=== PATIENT | female | born 1960 | race Caucasian/White ===

== ENCOUNTER 2022-04-01 04:19 | Emergency (ER) | payer BC ==
--- OUTSIDE RECORDS SUMMARY | 2022-04-01 04:24 | XMS REPORT | Continuity of Care Document ---
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 [facility] Gustavo Adan M.D. 2016-11-24 2016-11-24 Day nullFlavo [facility] [id number] [place] 11:35:00 15:05:00 Surgery r [place] 00 l [facility] 2016-11-24 2016-11-24 [facility] BRITTANY MELO Orthopedics [id number] [place] 07:00:00 07:00:00 t; ricky BLACKWELL [place] Gustavo Chao M.D. 2016-11-18 2016-11-18 [facility] MELO UTP [id number] [place] 09:15:00 09:15:00 t; Mickey BLACKWELL M.D. ans TAGGART, M.D. 2016-09-27 2016-09-27 [facility] ELIDIA BRITTANY UTP [id number] [place] 10:00:00 10:00:00 t; Tin TRUJILLO ANDREW, ans ANDREW, M.D. M.D. 2016-06-27 2016-06-27 [facility] ELIDIA BRITTANY SOTO [id number] [place] 09:45:00 09:45:00 t; Tin TRUJILLO ANDREW, ans ANDREW, M.D. M.D. 2016-06-08 2016-06-08 [facility] ELIDIA BRITTANY UTP [id number] [place] 10:00:00 10:00:00 t; Tin TRUJILLO ANDREW, ans ANDREW, M.D. M.D. Results Test Description Test Time Test Comments Results Result Comments Source POCT GRP A STREP (MOLECULAR) 2021-09-22 19:18:00 Test Item Value Reference Range Interpretation Comme nts POCT GP A STREP (test code = 84766-9) negative Negative - Negat jyothi [facility] [id number] 09:41:0094[facility] XTRKY7226-10-79 09:41:0015[facility]annCHE[facility] CJCBO1279-78-83 09:41:000.59[facility]annCHE[facility] RWDXM5600-43-71 09:41:72647Gvxpvryk HermannCHEM FULXH0670-84-78 09:41:003.1[facility] OBNSV1627-61-99 09:41:73511 [facility] LGJBF7983-44-01 09:41:0029[facility]annCHE[facility] PANEL 2019-08-12 09:41:008.8[facility] YJQYY0891-66-20 09:41:006.1[facility]annCHE[facility] DJSPC6130-63-48 09:41:003.2[facility]annCHE[facility] UNFKH1921-76-60 09:41:0068[facility]annCHE[facility] TXQAJ3347-90-33 09:41:0066[facility]annCHE[facility] MCIAU9773-39-96 09:41:0063[facility]annCHE[facility] IONKS9279-92-32 09:41:000.3 [facility] HermannCHEM VHLRL5090-15-60 09:41:009.1[facility]annCHEM PANEL 2019-08-12 09:41:00 Test Item Value Reference Range Interpretation Comments B/C Ratio (test code = B/C Ratio) 25 1 6-25 [facility] NEQRD9951-27-21 09:41:002.9[facility]annCHE[facility] PANEL 2019-08-12 09:41:00 Test Item Value Reference Range Interpretation Comments A/G Ratio (test code = A/G Ratio) 1.1 1 0.7-1.6 [facility] ANSONHNMDU3310-11-09 09:41:26817Rhnlsavf HermannHEMATOLOGY 2019-08-12 02:39:00 Test Item Value Reference Range Interpretation Comments PT (test code = PT) 12.2 s 12.0-14.7 [facility] TomballYnwnqjnVODBUPHIXT1266-28-90 02:39:00 Test Item Value Reference Range Interpretation Comments INR (test code = INR) 0.92 1 0.85-1.17 [facility] TomballZiwlnycBYJCWWYPEC5036-02-06 02:39:00 Test Item Value Reference Range Interpretation Comments PTT (test code = PTT) 29.2 s 22.9-35.8 [facility] TomballZygbmxoPVTLSFJCGX2507-50-55 02:39:0072.3[facility] HermannHEMATOLOGY 2019-08-12 02:39:0018.8[facility] DhfmuddDEVBPZBMPQ1681-45-11 02:39:007.3[facility] WcqujbjLQEUOFMSBG0657-91-01 02:39:001.0[facility] VsbwpzeJZZSNHFDSE7701-80-06 02:39:000.6[facility] CkxcktfBCWOCEEBXR4668-56-69 02:39:006.1[facility] Willi IEZZQWBIGY8090-76-14 02:39:001.6[facility] EaepzayYLETXYHBDV4721-48-52 02:39:000.6 [facility] YwlkobwCLRENKOPZN6109-02-99 02:39:000.1[facility] HermannCHEM PANEL 2019-08-12 02:39:0080[facility] HermannCHEM PXESW7037-74-19 02:39:0014[facility]annCHEM EVMYT0257-35-57 02:39:000.63[facility]annCHEM TQTTT1178-65-47 02:39:88342Eubmacpz HermannCHEM GRNSH1318-82-86 02:39:003.7[facility]annCHEM RHJFN0620-02-45 02:39:44534Tvczbdng HermannCHEM HJFNO0812-95-57 02:39:0027 [facility]ann[facility] LOAAY1295-45-79 02:39:009.1[facility]annCHEM PANEL 2019-08-12 02:39:007.2[facility]annCHEM RPILI9615-00-68 02:39:003.7[facility]annCHE[facility] RKTZX3685-52-15 02:39:0090[facility]annCHEM RVSQT3181-36-77 02:39:65196Ntoumnnd HermannCHEM BVRDO9758-95-73 02:39:0072[facility]annCHEM BLSNP0718-38-58 02:39:000.4[facility]annCHE[facility] SFCBI7432-87-74 02:39:0099 [facility] RZUWB3989-01-92 02:39:0011.7[facility]annCHEM PANEL 2019-08-12 02:39:00 Test Item Value Reference Range Interpretation Comments B/C Ratio (test code = B/C Ratio) 22 1 6-25 [facility]annCHE[facility] QNHTS0405-16-37 02:39:003.5[facility] HermannCHEM PANEL 2019-08-12 02:39:00 Test Item Value Reference Range Interpretation Comments A/G Ratio (test code = A/G Ratio) 1.1 1 0.7-1.6 Memorial UuvnsvsWPPIAQEKOV9188-41-85 02:39:008.5[facility] HermannHEMATOLOGY 2019-08-12 02:39:004.52[facility] WkxxdckZWWNGEBTTC5991-40-98 02:39:0014.4[facility] DiturzrZQOKUUJQEL4101-72-42 02:39:0042.3[facility] GjzcnbdUTAVQRDXJR7529-49-07 02:39:0093.4[facility] UtidsngAMLRISWOCB4870-01-05 02:39:00 Test Item Value Reference Range Interpretation Comments MCH (test code = MCH) 31.8 pg 27.0-31.0 [facility] WkmmlcrVDOBQYXSRO5843-87-20 02:39:0034.0[facility] HermannHEMATOLOGY 2019-08-12 02:39:0013.1[facility] XyxseldJHITHMCWEV2441-23-49 02:39:25150Ckolyesb WyrecuqESRWBSQKKE7003-00-10 02:39:008.5[facility] Willi- CT CHEST W/O CONTRAST 2019-05-20 10:33:00 Name: CARLOS EDUARDOMARCIAL METZGER [facility] : 1960 Age/S: 59 / F [address] Unit #: [id number] Loc: [place] [address] Phys: Petar Arias MD Acct: [id number] Dis Date: Status: REG CLI PHONE #: [phone] Exam Date: 05/20/2019 0922 FAX #: Reason: Z87.891 EXAMS: CPT: [id number] CT CHEST W/O CONTRAST 47702 EXAM : CT CHEST WITHOUT CONTRAST HISTORY: 59 years -old Female with Z87.891 LOCATION CODE: C3 COMPARISON: None TECHNIQUE: CT evaluation of thethorax performed with contiguous axial images obtained without IV contrast administration per department protocol. Mediastinal and pulmonary windows utilized with coronal reconstructions also reviewed. Study is limited without IV contrast. Automated exposure reduction (Auto mA / Smart mA) was utilized in compliance with ACR image wisely. Total Exam DLP : 129 mGy/cm CTDI vol: 0.77 mGy FINDINGS: Lines and tubes: None. Lungs and pleura: No pleural effusion. No pneumothorax. No pulmonary consolidation. No central endobronchial masses. Mediastinum and neck: No adenopathy by CT sizecriteria. The thyroid gland is normal. Cardiac: No cardiomegaly or pericardial effusion. Thoracic Aorta: The thoracic aorta is unremarkable in appearance. Elevation left hemidiaphragm is seen. Abdomen: No upper abdominal abnormality identified. Patient demonstrate presence of status post surgical trena and radiopaque mesh overlying the GE junction compatible with prior surgical intervention. Musculoskeletal: No soft tissue masses. No aggressive appearing skeletal lesions. IMPRESSION: PAGE 1 Signed Report (CONTINUED) Name: MARCIAL MALDONADO [facility] : 1960 Age/S: 59 / F [address] Unit #: [id number] Loc: [place] [address] Phys: Petar Arias MD Acct: [id number] Dis Date: Status: REG CLI PHONE #: [phone] Exam Date: 05/20/2019921 FAX #: Reason: Z87.891 EXAMS: CPT: [id number] CHEST W/O CONTRAST 59916 <Continued> 1. Status post hiatal hernia repair. 2. No infiltrate. 3. No pneumothorax or pleural effusion. 4. Elevation left hemidiaphragm. This report was generated with usage of voice recognition software. at 1033 Reported and signed by: Kennedy Reveles M.D. CC: Petar Arias MD Technologist:Azul Simons, RT(R) CTDI: DLP: Trnscb Date/Time: 05/20/2019 (1033) [email or web address] Orig Print D/T: S: 05/20/2019 (1036) PAGE 2 Signed ReportCARDIAC CFIVQOW6808-77-95 22:23:00 <0.02[facility] HermannCARDIAC MIURUCS3906-15-93 22:23:0044[facility] HermannCHEM IUAJW8555-72-15 22:23:0085[facility] HermannCHEM FWSXU5834-99-35 22:23:000.3 [facility] HermannCHEM MHVRS2295-69-34 22:23:003.9[facility] HermannCHEM PANEL 2019-02-14 22:23:007.6[facility] HermannCHEM SCDUH4273-06-21 22:23:0035[facility] HermannCHEM DBAKB7635-58-71 22:23:0023[facility] HermannCHEM YMHUN7632-20-75 22:23:51710Vrgoovyp HermannCHEM YWZCS0735-17-38 22:23:003.5[facility] HermannCHEM BLRRX0723-88-79 22:23:0027[facility] HermannCHEM RDNFG3158-23-19 22:23:15626 [facility] HermannCHEM WZNWW3229-26-25 22:23:0098[facility] HermannCHEM PANEL 2019-02-14 22:23:000.57[facility] HermannCHEM EHOJD2982-84-31 22:23:0017[facility] HermannCHEM WNDZZ7703-71-72 22:23:009.5[facility] HermannCHEM KCRRK9827-22-39 22:23:96559Uryxgiko HermannCHEM RCCCE8361-90-96 22:23:003.7[facility] HermannCHEM MRESN5350-83-91 22:23:00 Test Item Value Reference Range Interpretation Comments A/G Ratio (test code = A/G Ratio) 1.1 1 0.7-1.6 [facility] HermannCHEM HEVAA1170-61-26 22:23:0016.5[facility] HermannCHEM PANEL 2019-02-14 22:23:00 Test Item Value Reference Range Interpretation Comments B/C Ratio (test code = B/C Ratio) 30 1 6-25 [facility] ZvyupomBLQEDFCFMP0755-35-69 22:23:004.72[facility] HermannHEMATOLOGY 2019-02-14 22:23:0014.6[facility] KxsiqqyTYWBIOIPXY9607-47-23 22:23:005.7[facility] VzlbmiqYCVNMJZRBI9831-96-00 22:23:0042.8[facility] BlvqkxaSPLBSHSSBS4081-39-42 22:23:0090.5[facility] CnuzsmvGUJMVADPGT6350-96-87 22:23:0012.7[facility] [place] QGFHBCPJYN6058-71-14 22:23:70331Wqsnchvl DwxjeitWOGBLQWSBC7268-16-17 22:23:008.2 [facility] TdmhgclCJRULLYMIV0449-05-78 22:23:00 Test Item Value Reference Range Interpretation Comments MCH (test code = MCH) 30.9 pg 27.0-31.0 Memorial PlmiapvDMUGRPCCNT0240-09-00 22:23:0034.1[facility] HermannHEMATOLOGY 2019-02-14 22:23:008.7[facility] VrpvtjwWBJIIUJVHU6738-12-66 22:23:0029.6[facility] MavyicwCUTWQZAJDY7648-79-90 22:23:002.7[facility] AchlxqvPLIAQYGTQC0501-66-31 22:23:000.5[facility] FaliqhzGZCDPGVKHZ5418-86-47 22:23:001.7[facility] [place] XIRSXOLSEI5107-38-80 22:23:003.3[facility] VrlxanrHOPYOGVQPM2892-44-24 22:23:001.0 [facility] EipkohnEWQKMLPFDZ9225-07-38 22:23:000.2[facility] HermannHEMATOLOGY 2019-02-14 22:23:000.1[facility] JjoosotYFJFCHVMDH1288-40-56 22:23:0058.0[facility] NzpjxhfTLRBNKSUEALS4329-72-00 18:08:0010.0[facility] VkvkseeEPXLMGTWBPKO2730-29-80 18:08:004.0[facility] MjkgkjpGYGDYACUUDUU9598-39-68 18:08:00078Ppkattoa Willi GKAFLSHANNZW8164-80-15 18:08:0032[facility] KimzwaeSEHQWSOUBCSP6201-33-48 18:08:00 104[facility] [place]
[2022-04-01 05:22] LABS: Hematocrit 43.8 % (36.0-45.0); Lymphocytes % 11.7 % (15.3-44.8); MPV 7.7 fL (7.6-11.3); RBC Red Blood Cell Count 4.85 M/uL (3.86-4.86)
[2022-04-01 05:25] LABS: Urine Blood Negative (Negative); Urine Glucose Negative (Negative); Urine Protein Negative (Negative); Urine pH 6.5 (5.0-7.0)
[2022-04-01 05:48] LABS: Bilirubin Total 0.6 mg/dL (0.2-1.0); Potassium 3.2 mmol/L (3.5-5.1); Protein, Total 7.7 g/dL (6.4-8.2)
[2022-04-01] MEDS ORDERED: NA CHLORIDE 0.9% 1,000 ML ONE (05:50)
[2022-04-01] MEDS ORDERED: FAMOTIDINE 20 MG/2 ML VIAL IV ONE (05:50)
[2022-04-01] MEDS ORDERED: MORPHINE 4 MG/ML SYR ONE (05:50)
[2022-04-01] MEDS ORDERED: ONDANSETRON 4 MG/2 ML VIAL ONE (05:50)
[2022-04-01 06:01] LABS: Urine Bacteria 20-50 /HPF (<20); Urine Mucus 3+ /HPF (NONE SEEN); Urine RBC <5 /HPF (NONE SEEN)
--- NOTE | 2022-04-01 07:44 | ER ---
Nurse's Notes [facility] Name: Nichole Thibodeaux Age: 61 yrs Sex: Female : 1960 Arrival Date: 04/01/2022 Time: 04:24 Bed 7 Private MD: Diagnosis: Abdominal pain, Generalized Presentation: 04/01 04:48 Chief complaint: Patient states: she has been having abdominal pain so bad that she has bb not been able to sleep all night she vomited x 1 on arrival and feels better also had normal bowel movement last night. Coronavirus screen: At this time, the client does not indicate any symptoms associated with coronavirus-19. Ebola Screen: No symptoms or risks identified at this time. Initial Sepsis Screen: Does the patient meet any 2 criteria? No. Patient's initial sepsis screen is negative. Does the patient have a suspected source of infection? No. Patient's initial sepsis screen is negative. Risk Assessment: Do you want to hurt yourself or someone else? Patient reports no desire to harm self or others. Onset of symptoms was March 31, 2022. 04:48 Method Of Arrival: Ambulatory bb 04:48 Acuity: JAIRO 3 bb Triage Assessment: 05:25 General: Appears in no apparent distress. Behavior is appropriate for age. Pain: ke1 Complains of pain in abdomen Pain currently is 2 out of 10 on a pain scale. at worst was 8 out of 10 on a pain scale. level that patient reports is acceptable is 5 out of 10 on a pain scale. GI: Abdomen is non-distended, Bowel sounds present X 4 quads. Abd is soft X 4 quads Abdomen is tender to palpation X 4 quads. in umbilical area, right upper quadrant, left upper quadrant, right lower quadrant and left lower quadrant. : No deficits noted. Historical: - Allergies: 04:49 No Known Allergies; bb - Home Meds: 04:49 montelukast oral [Active]; Advair Diskus Inhl [Active]; eszopiclone oral [Active]; bb cetirizine oral [Active]; levothyroxine oral [Active]; Hydrochlorothiazide Oral [Active]; Omeprazole Oral [Active]; escitalopram oxalate oral [Active]; Aspirin Oral [Active]; calcium 1200 [Active]; magnesium oxide 500 mg Oral tab [Active]; vit D [Active]; Fish Oil oral [Active]; - PMHx: 04:49 Asthma; insomnia; seasonal allergies; Hypothyroidism; GERD; Anxiety; bb - PSHx: 04:49 hysterctomy; bb - Immunization history:: Moderna x 3. - Social history:: Smoking status: Patient denies any tobacco usage or history of. Screenin:25 Abuse screen: Denies threats or abuse. Nutritional screening: No deficits noted. ke1 Tuberculosis screening: No symptoms or risk factors identified. Fall Risk None identified. No fall in past 12 months (0 pts). No secondary diagnosis (0 pts). IV access (20 points). Ambulatory Aid- None/Bed Rest/Nurse Assist (0 pts). Gait- Normal/Bed Rest/Wheelchair (0 pts) Mental Status- Oriented to own ability (0 pts). Total Post Fall Scale indicates No Risk (0-24 pts). Assessment: 05:27 GI: Reports vomiting. ke1 07:00 Reassessment: RECD REPORT FROM MILLIE ROA. 61YO WF P/W ABDOMINAL PAIN AND N/V. S/S bp RELIEVED, CT RESULTS PENDING. 08:01 Reassessment: PT D/C HOME AMBULATORY, DX WITH GEN ABDOMINAL PAIN. bp Vital Signs: 04:48 BP 119 / 78; Pulse 82; Resp 16 S; Temp 98.1(O); Pulse Ox 93% on R/A; Weight 78.02 kg bb (R); Height 5 ft. 6 in. (167.64 cm) (R); Pain 2/10; 07:00 BP 122 / 78; Pulse 71; Resp 17; Pulse Ox 100% ; bp 08:01 BP 121 / 69; Pulse 65; Resp 16; Pulse Ox 100% ; bp 04:48 Body Mass Index 27.76 (78.02 kg, 167.64 cm) ED Course: 04:24 Patient arrived in ED. kz 04:47 Millie Blake RN is Primary Nurse. ke1 04:49 Jonathan Gutiérrez MD is Attending Physician. [facility] 04:49 Triage completed. bb 04:49 Arm band placed on Patient placed in an exam room, on a stretcher, on pulse oximetry. bb 05:24 Inserted saline lock: 22 gauge in right antecubital area, using aseptic technique. ke1 05:26 Patient has correct armband on for positive identification. Bed in low position. Call ke1 light in reach. 05:59 CT Abd/Pelvis - Without Contrast In Process Unspecified. EDMS 07:07 Primary Nurse role handed off by Millie Blake RN bp 07:07 Rocky Cornejo, RN is Primary Nurse. bp 07:40 EKG done, by ED staff. tp1 08:00 IV discontinued, intact, bleeding controlled, No redness/swelling at site. Pressure bp dressing applied. 08:01 IV discontinued, intact, bleeding controlled, No redness/swelling at site. Pressure tp1 dressing applied. 08:01 No provider procedures requiring assistance completed. bp Administered Medications: 06:00 Drug: NS 0.9% 1000 ml Route: IV; Rate: 1000 ml; Site: right antecubital; ke1 08:03 Follow up: IV Status: Completed infusion; IV Intake: 1000ml bp 06:00 Drug: morphine 4 mg Route: IVP; Infused Over: 4 mins; Site: right antecubital; ke1 07:31 Follow up: Response: Pain is decreased bp 06:00 Drug: Zofran (Ondansetron) 4 mg Route: IVP; Site: right antecubital; ke1 07:31 Follow up: Response: No adverse reaction bp 06:00 Drug: Pepcid (famotidine) 20 mg Route: IVP; Site: right antecubital; ke1 07:31 Follow up: Response: No adverse reaction bp Medication: 08:01 VIS not applicable for this client. bp Intake: 08:03 IV: 1000ml; Total: 1000ml. bp Outcome: 07:44 Discharge ordered by . [facility] 08:01 Discharged to home ambulatory. bp 08:01 Condition: stable 08:01 Discharge instructions given to patient, Instructed on discharge instructions, follow up and referral plans. medication usage, Demonstrated understanding of instructions, follow-up care, medications, Prescriptions given X 3. 08:03 Patient left the ED. bp Signatures: Dispatcher Med[employer] EDLA Mamie Santoro RN RN bb Peltier, Brian, RN RN bp Holmes, Maurice, MD MD mh7 Parker, Tiffany tp1 Millie Blake RN RN ke1 Katelynn Harris Corrections: (The following items were deleted from the chart) 04:58 04:49 Home Meds: Fish Oil 1,000 mg (120 mg-180 mg) oral cap; bb bb
--- NOTE | 2022-04-01 07:45 | EDPHYS ---
Physician Documentation [facility] Name: Nichole Thibodeaux Age: 61 yrs Sex: Female : 1960 Arrival Date: 04/01/2022 Time: 04:24 Bed 7 Private MD: ED Physician Jonathan Gutiérrez HPI: 04/01 05:05 This 61 yrs old Female presents to ER via Ambulatory with complaints of Abdominal Pain, mh7 Nausea. 05:05 The patient presents with abdominal pain that is diffuse. mh7 05:05 Onset: The symptoms/episode began/occurred today, at 02:00. The symptoms do not mh7 radiate. Associated signs and symptoms: Pertinent positives: nausea and vomiting, Pertinent negatives: anorexia, blood in stools, chest pain, constipation, diarrhea, dysuria, fever, headache, hematuria, palpitations, shortness of breath, vomiting blood. The symptoms are described as intermittent, vague, waxing/waning. Modifying factors: The symptoms are alleviated by nothing, the symptoms are aggravated by nothing. Severity of pain: At its worst the pain was moderate today, in the emergency department the pain has improved moderately. Historical: - Allergies: 04:49 No Known Allergies; bb - Home Meds: 04:49 montelukast oral [Active]; Advair Diskus Inhl [Active]; eszopiclone oral [Active]; bb cetirizine oral [Active]; levothyroxine oral [Active]; Hydrochlorothiazide Oral [Active]; Omeprazole Oral [Active]; escitalopram oxalate oral [Active]; Aspirin Oral [Active]; calcium 1200 [Active]; magnesium oxide 500 mg Oral tab [Active]; vit D [Active]; Fish Oil oral [Active]; - PMHx: 04:49 Asthma; insomnia; seasonal allergies; Hypothyroidism; GERD; Anxiety; bb - PSHx: 04:49 hysterctomy; bb - Immunization history:: Moderna x 3. - Social history:: Smoking status: Patient denies any tobacco usage or history of. ROS: 05:05 Constitutional: Negative for fever, chills, and weight loss, Eyes: Negative for injury, mh7 pain, redness, and discharge, ENT: Negative for injury, pain, and discharge, Neck: Negative for injury, pain, and swelling, Cardiovascular: Negative for chest pain, palpitations, and edema, Respiratory: Negative for shortness of breath, cough, wheezing, and pleuritic chest pain, Back: Negative for injury and pain, : Negative for injury, bleeding, discharge, and swelling, MS/Extremity: Negative for injury and deformity, Skin: Negative for injury, rash, and discoloration, Neuro: Negative for headache, weakness, numbness, tingling, and seizure, Psych: Negative for depression, anxiety, suicide ideation, homicidal ideation, and hallucinations, Allergy/Immunology: Negative for hives, rash, and allergies, Endocrine: Negative for neck swelling, polydipsia, polyuria, polyphagia, and marked weight changes, Hematologic/Lymphatic: Negative for swollen nodes, abnormal bleeding, and unusual bruising. Exam: 05:05 Head/Face: Normocephalic, atraumatic. Eyes: Pupils equal round and reactive to light, mh7 extra-ocular motions intact. Lids and lashes normal. Conjunctiva and sclera are non-icteric and not injected. Cornea within normal limits. Periorbital areas with no swelling, redness, or edema. Neck: Trachea midline, no thyromegaly or masses palpated, and no cervical lymphadenopathy. Supple, full range of motion without nuchal rigidity, or vertebral point tenderness. No Meningismus. Chest/axilla: Normal chest wall appearance and motion. Nontender with no deformity. No lesions are appreciated. Cardiovascular: Regular rate and rhythm with a normal S1 and S2. No gallops, murmurs, or rubs. Normal PMI, no JVD. No pulse deficits. Respiratory: Lungs have equal breath sounds bilaterally, clear to auscultation and percussion. No rales, rhonchi or wheezes noted. No increased work of breathing, no retractions or nasal flaring. 05:05 Back: No spinal tenderness. No costovertebral tenderness. Full range of motion. Skin: Warm, dry with normal turgor. Normal color with no rashes, no lesions, and no evidence of cellulitis. MS/ Extremity: Pulses equal, no cyanosis. Neurovascular intact. Full, normal range of motion. Neuro: Awake and alert, GCS 15, oriented to person, place, time, and situation. Cranial nerves II-XII grossly intact. Motor strength 5/5 in all extremities. Sensory grossly intact. Cerebellar exam normal. Normal gait. Psych: Awake, alert, with orientation to person, place and time. Behavior, mood, and affect are within normal limits. 05:05 Constitutional: The patient appears in no acute distress, alert, awake, uncomfortable. 05:05 Abdomen/GI: Inspection: abdomen appears normal, Bowel sounds: normal, in all quadrants, Palpation: mild abdominal tenderness, in all quadrants, Rectal exam: the exam is deferred, because of patient request, Indicators: McBurney's point is not tender, Horowitz's sign is negative, Rovsing's sign is negative, Obturator sign is negative, Psoas sign is negative, Liver: no appreciated palpable abnormalities, Hernia: not appreciated. Vital Signs: 04:48 BP 119 / 78; Pulse 82; Resp 16 S; Temp 98.1(O); Pulse Ox 93% on R/A; Weight 78.02 kg bb (R); Height 5 ft. 6 in. (167.64 cm) (R); Pain 2/10; 07:00 BP 122 / 78; Pulse 71; Resp 17; Pulse Ox 100% ; bp 08:01 BP 121 / 69; Pulse 65; Resp 16; Pulse Ox 100% ; bp 04:48 Body Mass Index 27.76 (78.02 kg, 167.64 cm) bb MDM: 07:41 Differential diagnosis: bowel obstruction, diverticulitis, gastritis, gastroesophageal mh7 reflux disease, non-specific abd pain, pancreatitis, Peptic Ulcer Disease, Pyelonephritis, Ureterolithiasis, urinary tract infection. Data reviewed: vital signs, nurses notes, lab test result(s), CBC, electrolytes, urinalysis, EKG, radiologic studies, CT scan. Data interpreted: Pulse oximetry: on room air is 100 %. Interpretation: normal. Counseling: I had a detailed discussion with the patient and/or guardian regarding: the historical points, exam findings, and any diagnostic results supporting the discharge/admit diagnosis, lab results, radiology results, the need for outpatient follow up, to return to the emergency department if symptoms worsen or persist or if there are any questions or concerns that arise at home. Response to treatment: the patient's symptoms have resolved after treatment, the patient's blood pressure is in an acceptable range, mental status has returned to baseline, the patient no longer shows bradycardia, the patient is not short of breath, the patient is not tachycardic, the patient's pain is gone, the patient's temperature has normalized, the patient is now symptom free, patient is well hydrated. ED course: Feels better, well appearing, NAD, VSS, no focal neurological deficits. Tolerating PO intake without difficulty. No abdominal pain, nausea, vomiting, diarrhea. Patient requests to be discharged at this time. Will follow up with her doctor.. 07:44 Patient medically screened. [facility] 04/01 05:02 Order name: CBC with Diff; Complete Time: 05:37 [facility] 04/01 05:02 Order name: CMP; Complete Time: 07:12 [facility] 04/01 05:02 Order name: Lipase; Complete Time: 07:12 [facility] 04/01 05:14 Order name: Urine Microscopic Only; Complete Time: 07:12 [facility] 04/01 05:25 Order name: Urine Dipstick-Ancillary; Complete Time: 05:37 [facility] 04/01 06:03 Order name: Urine Culture [facility] 04/01 05:02 Order name: IV Saline Lock; Complete Time: 05:14 [facility] 04/01 05:02 Order name: Labs collected and sent; Complete Time: 05:14 [facility] 04/01 05:38 Order name: CT Abd/Pelvis - Without Contrast [facility] 04/01 07:13 Order name: EKG; Complete Time: 07:14 [facility] 04/01 05:02 Order name: Urine Dipstick-Ancillary (obtain specimen); Complete Time: 05:24 [facility] 04/01 07:13 Order name: EKG - Nurse/Tech; Complete Time: 07:50 [facility] Administered Medications: 06:00 Drug: NS 0.9% 1000 ml Route: IV; Rate: 1000 ml; Site: right antecubital; ke1 08:03 Follow up: IV Status: Completed infusion; IV Intake: 1000ml bp 06:00 Drug: morphine 4 mg Route: IVP; Infused Over: 4 mins; Site: right antecubital; ke1 07:31 Follow up: Response: Pain is decreased bp 06:00 Drug: Zofran (Ondansetron) 4 mg Route: IVP; Site: right antecubital; ke1 07:31 Follow up: Response: No adverse reaction bp 06:00 Drug: Pepcid (famotidine) 20 mg Route: IVP; Site: right antecubital; ke1 07:31 Follow up: Response: No adverse reaction bp Disposition Summary: 04/01/22 07:44 Discharge Ordered Location: Home [facility] Problem: new [facility] Symptoms: have improved [facility] Condition: Stable [facility] Diagnosis - Abdominal pain, Generalized mh7 Followup: [facility] - With: Private Physician - When: 1 - 2 days - Reason: Worsening of condition, Recheck today's complaints, Continuance of care, Re-evaluation by your physician Discharge Instructions: - Discharge Summary Sheet [facility] - Viral Gastroenteritis, Adult, [id number] [facility] - Abdominal Pain, Adult, [id number] [facility] Forms: - Medication Reconciliation Form [facility] - Thank You Letter [facility] - Antibiotic Education [facility] - Prescription Opioid Use [facility] Prescriptions: - ondansetron 4 mg Oral tablet,disintegrating - place 1 tablet by TRANSLINGUAL route every 8 hours As needed; 10 tablet; [facility] Refills: 0, Product Selection Permitted - Pepcid 20 mg Oral Tablet - take 1 tablet by ORAL route every 12 hours for 5 days; 10 tablet; Refills: 0, [facility] Product Selection Permitted - dicyclomine 20 mg Oral Tablet - take 2 tablets by ORAL route 4 times per day As needed; 20 tablet; Refills: 0, [facility] Product Selection Permitted Signatures: Dispatcher [employer] Mamie Tavera RN RN bb Holmes, Maurice, MD MD [facility] Pavel Blake RN RN ke1 Rocky Cornejo RN bp Corrections: (The following items were deleted from the chart) 04:58 04:49 Home Meds: Fish Oil 1,000 mg (120 mg-180 mg) oral cap; wally lo
[2022-04-01 08:08] VITALS: TEMP 98.1
[2022-04-01 08:11] VITALS: O2SAT 100
[2022-04-01 08:13] VITALS: BP 121/69
--- NOTE | 2022-04-01 13:47 | RAD REPORT ---
EXAM DESCRIPTION: CT - Abdomen Pelvis Wo Contrast - 04/01/2022 6:51 am CLINICAL HISTORY: 61 years Female Abdominal pain, acute, nonlocalized TECHNIQUE: Non contrast CT of the abdomen and pelvis with coronal and sagittal reformats. All CT sca ns at this facility use dose modulation, iterative reconstruction, and/or weight based dosing when ap propriate to reduce radiation dose to as low as reasonably achievable. COMPARISON: None. FINDINGS: Lower chest: Minimal bibasilar dependent atelectasis. Abdomen/Pelvis: Liver: Unremarkable. Gallbladder: No calcified stone. Pancreas: Within normal limits. Spleen: Calcified granulomas are present. Kidney: No stone or hydronephrosis. A 4.6 x 3.9 cm cyst in the inferior pole of the left kidney. Adrenal glands: Within normal limits. Vascular structures: Unremarkable. Bowel: Nondistended loops of small bowel with air-fluid levels. Postsurgical changes in the gastroeso phageal junction. Large amount of stool in the ascending and transverse colons. Appendix: Not seen. Peritoneum: Small simple free fluid in the pelvis, likely physiologic. No free air. Lymph Nodes: No lymphadenopathy. Reproductive: Status post hysterectomy. Urinary bladder: Unremarkable. Osseous structures: Mild multilevel degenerative changes, severe at L5-S1. Soft tissues: Unremarkable. IMPRESSION: Nondistended loops of small bowel with air-fluid level suggesting enteritis. Electronically signed by: Ryan Cho MD 04/01/2022 6:39 AM CDT Due to temporary technical issues with the PACS/Fluency reporting system, reports are being signed by the in house radiologist without review as a courtesy to ensure prompt reporting. The interpreting r adiologist is fully responsible for the content of the report.
--- NOTE | 2022-04-06 07:57 | EKG ---
Test Date: 2022-04-01 Test Time: 07:33:17 Weir Fisher: TP MEASUREMENT RESULTS: Intervals: Rate: 67 IN: QRSD: 94 QT: 446 QTc: 471 [place]: P: 65 IN: QRS: 28 T: 22 INTERPRETIVE STATEMENTS: Atrial flutter with 4:1 AV conduction Abnormal ECG No previous ECG available for comparison Electronically Signed On 04-06-22 07:51:04 CDT by Guanako Ortega
== END 2022-04-01 08:03 | disposition home or self-care (01) ==
LOC: ER 04:19
DX: R10.84 Generalized abdominal pain (principal); E03.9 Hypothyroidism, unspecified; K21.9 Gastro-esophageal reflux disease without esophagitis; F41.9 Anxiety disorder, unspecified
CPT/HCPCS: 96361; 93005; 87088; 85025; 87086; 36415; 83690; 80053; 74176; 96375; 96374; 99284; J7030; J2405; J3490; 81003; 81015